=== PATIENT | female | born 1940 | race Two or more races ===

== ENCOUNTER 2022-12-09 09:46 | Observation (INO) | payer OTHER, MEDICAID ==
[~2022-12-09] VITALS: Ht 157.5 cm; Wt 75.2 kg
[2022-12-09] MEDS ORDERED: SODIUM CHLORIDE 0.9% 1,000 ML IV ONE (10:30)
[2022-12-09 10:52] LABS: Basophils # (auto) 0 10 ^3/uL (0-0.2); Basophils % (auto) 0.5 % (0.0-2.0); Eosinophils # (auto) 0.1 10 ^3/uL (0-0.8); Eosinophils % (auto) 0.9 % (0.0-7.0); Hematocrit 40.9 % (36.0-46.0); Hemoglobin 13.8 g/dL (12.2-16.2); Lymphocytes # (auto) 0.8 10 ^3/uL (0.4-5.4); Lymphocytes % (auto) 11.3 % (10.0-50.0); Mean Corpuscular Hemoglobin 31.4 pg (28.0-32.0); Mean Corpuscular Hgb Conc. 33.8 g/dL (32.0-36.0); Monocytes # (auto) 0.4 10 ^3/uL (0-1.3); Monocytes % (auto) 5.5 % (0.0-12.0); Neutrophils # (auto) 5.7 10 ^3/uL (1.6-8.6); Neutrophils % (auto) 81.8 % (37.0-80.0); Red Cell Distribution Width 14.1 % (11.8-14.3)
[2022-12-09 11:18] LABS: Alanine Aminotransferase 24 U/L (7-40); Alkaline Phosphatase 69 U/L (46-116); Anion Gap 7 (5-15); Aspartate Aminotransferase 33 U/L (13-40); BUN/Creatinine Ratio 25.8 (10.0-20.0); Blood Urea Nitrogen 32 mg/dL (9-23); Calcium 10.1 mg/dL (8.7-10.4); Carbon Dioxide 31 mmol/L (20-30); Chloride 100 mmol/L (98-107); Glucose 177 mg/dL (74-106); Potassium 3.4 mmol/L (3.5-5.1); Sodium 138 mmol/L (136-145)
[2022-12-09 11:19] LABS: Albumin 5.2 g/dL (3.2-4.8); Bilirubin, Total 0.5 mg/dL (0.2-1.0); Total Protein 8.1 g/dL (5.7-8.2)
[2022-12-09 11:20] VITALS: PULSE 67; RESP 16; O2SAT 95
[2022-12-09] MEDS ORDERED: IOHEXOL 300 MG/ML 100ML BOTTLE IJ ONE (11:59)
[2022-12-09 13:35] LABS: Urine Bacteria NONE SEEN /hpf (None Seen); Urine Blood Negative /uL (Negative); Urine Clarity Clear (Clear); Urine Color Colorless (Yellow); Urine Mucus FEW (None Seen); Urine Protein, UAD Negative (Negative); Urine Specific Gravity 1.024 (1.001-1.035); Urine Urobilinogen Normal (Negative); Urine WBC 4 /hpf (0 - 5); Urine pH 5.5 (5.0-8.0)
[2022-12-09] MEDS ORDERED: KETOROLAC TROMETH 30 MG/ML 1ML VIAL IV ONE (14:45)
[2022-12-09] MEDS ORDERED: FLEET ENEMA(ADULT) 135 ML PR ONE (15:45)
[2022-12-09] MEDS ORDERED: POLYETHYLENE GLYCOL 17 GM PWDR PO ONE (15:45)
[2022-12-09] MEDS ORDERED: MORPHINE SULFATE INJ 2 MG/ml SYRG IV PRN (17:00)
[2022-12-09] MEDS ORDERED: NITROGLYCERIN 0.4 MG SL TAB SL PRN (17:00)
[2022-12-09] MEDS ORDERED: GOLYTELY 4L KIT PO ONE (17:00)
[2022-12-09] MEDS ORDERED: DEXTROSE (50%) 50ML SYRG IV PRN (18:00)
[2022-12-09] MEDS ORDERED: POTASSIUM CHL 10 Meq TABLET PO ONE (18:00)
[2022-12-09] MEDS: SODIUM CHLORIDE 0.9% 1,000 ML IV SCH (18:32)
[2022-12-09] MEDS: amLODIPine BESYLATE 5 MG TAB PO SCH (18:41)
[2022-12-09 19:35] VITALS: PULSE 63; RESP 18; O2SAT 95
[2022-12-09 20:47] VITALS: BP 143/73; PULSE 71; RESP 18; TEMP 98; O2SAT 95
[2022-12-09] MEDS: CIPROFLOXACIN 400MG/200ML 200 ML IV SCH (21:12)
[2022-12-09] MEDS ORDERED: SODIUM CHLORIDE 0.9% 500 ML IV ONE (21:30)
[2022-12-09] MEDS: InsuLIN REG 1unit/0.01ml Soln (100units/ml) SC SCH (21:36)
[2022-12-09] MEDS: ACCU-CHEK COMFORT CURVE STRIP VI SCH (21:37)
[2022-12-10] VITALS (7 sets, daily range): BP systolic 113–136; BP diastolic 54–67; PULSE 49–94; RESP 12–18; TEMP 97.5–98.5; O2SAT 90–98
[2022-12-10] MEDS: ACCU-CHEK COMFORT CURVE STRIP VI SCH ×4 (06:09→22:00)
[2022-12-10] MEDS: InsuLIN REG 1unit/0.01ml Soln (100units/ml) SC SCH ×4 (06:09→22:00)
[2022-12-10 06:49] LABS: Alanine Aminotransferase 19 U/L (7-40); Albumin 4.1 g/dL (3.2-4.8); Alkaline Phosphatase 58 U/L (46-116); Anion Gap 5 (5-15); Aspartate Aminotransferase 23 U/L (13-40); BUN/Creatinine Ratio 21.2 (10.0-20.0); Bilirubin, Total 0.4 mg/dL (0.2-1.0); Blood Urea Nitrogen 21 mg/dL (9-23); Carbon Dioxide 33 mmol/L (20-30); Chloride 104 mmol/L (98-107); Glucose 106 mg/dL (74-106); Sodium 142 mmol/L (136-145); Total Protein 6.4 g/dL (5.7-8.2)
[2022-12-10 06:52] LABS: Potassium 2.8 mmol/L (3.5-5.1)
[2022-12-10 07:37] LABS: Basophils # (auto) 0 10 ^3/uL (0-0.2); Basophils % (auto) 0.9 % (0.0-2.0); Eosinophils # (auto) 0.2 10 ^3/uL (0-0.8); Eosinophils % (auto) 3.5 % (0.0-7.0); Hematocrit 35.6 % (36.0-46.0); Hemoglobin 12.2 g/dL (12.2-16.2); Lymphocytes # (auto) 1.7 10 ^3/uL (0.4-5.4); Lymphocytes % (auto) 38.2 % (10.0-50.0); Mean Corpuscular Hemoglobin 31.7 pg (28.0-32.0); Mean Corpuscular Hgb Conc. 34.3 g/dL (32.0-36.0); Mean Corpuscular Volume 92.5 fL (80.0-100.0); Monocytes # (auto) 0.5 10 ^3/uL (0-1.3); Monocytes % (auto) 10.6 % (0.0-12.0); Neutrophils # (auto) 2.1 10 ^3/uL (1.6-8.6); Neutrophils % (auto) 46.8 % (37.0-80.0); Nucleated Red Blood Cells % 0.1 %; Red Blood Cells 3.84 10^6/uL (4.0-5.20); Red Cell Distribution Width 13.8 % (11.8-14.3); White Blood Cell 4.6 10^3/uL (4.4-10.8)
[2022-12-10] MEDS: SODIUM CHLORIDE 0.9% 1,000 ML IV SCH (09:40)
[2022-12-10] MEDS: CIPROFLOXACIN 400MG/200ML 200 ML IV SCH (10:57)
[2022-12-10] MEDS: POTASSIUM CHL 20 Meq TABLET PO SCH ×2 (10:57→14:03)
[2022-12-10] MEDS: ENOXAPARIN SOD 30 MG/0.3 ML SYRINGE SC SCH (10:57)
[2022-12-10] MEDS: amLODIPine BESYLATE 5 MG TAB PO SCH (10:58)
[2022-12-10] MEDS ORDERED: POTASSIUM CHL 20 Meq TABLET PO ONE (14:00)
[2022-12-10] MEDS ORDERED: POTASSIUM CHL 20 Meq TABLET PO SCH (14:00)
[2022-12-10 17:09] LABS: Chloride 103 mmol/L (98-107); Sodium 140 mmol/L (136-145)
[2022-12-10 17:10] LABS: Anion Gap 4 (5-15); Carbon Dioxide 33 mmol/L (20-30)
[2022-12-10 17:11] LABS: Calcium 9.4 mg/dL (8.7-10.4)
[2022-12-10 17:15] LABS: BUN/Creatinine Ratio 18.6 (10.0-20.0); Blood Urea Nitrogen 18 mg/dL (9-23); Glucose 94 mg/dL (74-106)
[2022-12-11] MEDS: SODIUM CHLORIDE 0.9% 1,000 ML IV SCH (02:20)
[2022-12-11 05:00] VITALS: BP 144/64; PULSE 51; RESP 17; TEMP 98.5; O2SAT 92
[2022-12-11] MEDS: InsuLIN REG 1unit/0.01ml Soln (100units/ml) SC SCH ×2 (06:07→11:40)
[2022-12-11] MEDS: ACCU-CHEK COMFORT CURVE STRIP VI SCH ×2 (06:08→11:47)
[2022-12-11 06:42] LABS: Anion Gap 4 (5-15); Carbon Dioxide 31 mmol/L (20-30); Chloride 107 mmol/L (98-107); Potassium 3.2 mmol/L (3.5-5.1); Sodium 142 mmol/L (136-145)
[2022-12-11 06:48] LABS: Glucose 115 mg/dL (74-106)
[2022-12-11 06:49] LABS: BUN/Creatinine Ratio 14.9 (10.0-20.0); Blood Urea Nitrogen 13 mg/dL (9-23); Magnesium 1.7 mg/dL (1.6-2.6)
[2022-12-11 07:51] VITALS: RESP 16; O2SAT 98
[2022-12-11 09:00] VITALS: BP 146/63; PULSE 56; RESP 16; TEMP 98.4; O2SAT 94
[2022-12-11] MEDS: ENOXAPARIN SOD 30 MG/0.3 ML SYRINGE SC SCH (10:21)
[2022-12-11] MEDS: amLODIPine BESYLATE 5 MG TAB PO SCH (10:22)
[2022-12-11] MEDS ORDERED: POTASSIUM EFFERVESENT TAB 25 MEQ PO ONE (11:00)
[2022-12-11 13:00] VITALS: BP 143/69; PULSE 54; RESP 20; TEMP 97.7; O2SAT 92
[2022-12-11 14:53] LABS: Chloride 104 mmol/L (98-107); Potassium 4.4 mmol/L (3.5-5.1); Sodium 140 mmol/L (136-145)
[2022-12-11 14:54] LABS: Anion Gap 3 (5-15); Calcium 9.4 mg/dL (8.7-10.4); Carbon Dioxide 33 mmol/L (20-30)
[2022-12-11 14:59] LABS: Blood Urea Nitrogen 11 mg/dL (9-23); Glucose 155 mg/dL (74-106); Magnesium 1.7 mg/dL (1.6-2.6)
[2022-12-11 15:56] VITALS: BP 146/63; TEMP 36.5
== END 2022-12-11 17:00 | disposition home or self-care (01) ==
LOC: ER 09:46 → OVERFLOW 17:06 → WEST WING 20:47
PROVIDERS: ADMIT Student in an Organized Health Care Education/Training Program; ATTEND Internal Medicine Geriatric Medicine
DX: K59.00 Constipation, unspecified (principal); E87.6 Hypokalemia; E86.0 Dehydration; E11.65 Type 2 diabetes mellitus with hyperglycemia; K57.30 Diverticulosis of large intestine without perforation or abscess without bleeding; N17.9 Acute kidney failure, unspecified; E78.5 Hyperlipidemia, unspecified; E87.8 Other disorders of electrolyte and fluid balance, not elsewhere classified; I12.9 Hypertensive chronic kidney disease with stage 1 through stage 4 chronic kidney disease, or unspecified chronic kidney disease; E11.22 Type 2 diabetes mellitus with diabetic chronic kidney disease; N18.2 Chronic kidney disease, stage 2 (mild); E66.9 Obesity, unspecified; Z79.899 Other long term (current) drug therapy
CPT/HCPCS: 36415; 74177; 80048; 80053; 81001; 82962; 83735; 85025; 96361; 96365; 96366; 96372; 96375; 99285; G0378; J0744; J1650; J1815; J1885; J7030; Q9967